=== PATIENT | female | born 1965 | race American Indian/Alaskan Native ===

== ENCOUNTER 2016-08-20 19:37 | Emergency (ER) | payer SELFPAY ==
[2016-08-20 19:59] VITALS: BP 128/71
[2016-08-20] MEDS ORDERED: Sodium Chloride 0.9% 1,000 ML IV ONE ×2 (20:28→21:41)
[2016-08-20] MEDS ORDERED: Sodium Chloride 0.9% 10 ML Syringe FLUSH PRN (20:28)
[2016-08-20] MEDS ORDERED: Pantoprazole 40 MG Vial IVPUSH ONE (20:29)
[2016-08-20] MEDS ORDERED: Ondansetron 4 MG/2 ML SDV IVPUSH ONE ×2 (20:29→22:26)
--- NOTE | 2016-08-20 20:39 | EDM.PDOC ---
ED HPI GENERAL MEDICAL PROBLEM - General Chief Complaint: Gastrointestinal Problem Stated Complaint: VOMITING Time Seen by Provider: 08/20/16 20:18 Source of Information: Reports: Patient History Limitations: Reports: No Limitations - History of Present Illness INITIAL COMMENTS - FREE TEXT/NARRATIVE: Patient presents to [place] with complaints of diarrhea, vomiting, abdominal pain and dehydration for 9 days. She denies travel outside the country, exposure to communicable illness, exposure to ill-prepared food. She also complains of 17 lb weight loss since onset. She complains of fever with chills intermittently the last 9 days. 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: Musculoskeletal History: Reports: Fracture, Other (See Below) Other Musculoskeletal History: thumb - Past Surgical History Musculoskeletal Surgical History: Reports: None Social & Family History - Family History Family Medical History: Noncontributory - Tobacco Use Smoking Status *Q: Current Status Unknown - Caffeine Use Caffeine Use: Reports: Coffee - Alcohol Use Days Per Week of Alcohol Use: 6 Number of Drinks Per Day: 2 Total Drinks Per Week: 12 - Recreational Drug Use Recreational Drug Use: No ED ROS GENERAL - Review of Systems Review Of Systems: See Below Constitutional: Reports: Fever, Chills, Malaise, Fatigue, Decreased Appetite, Weight Loss. Denies: Night Sweats, Diaphoresis HEENT: Reports: No Symptoms Respiratory: Denies: Shortness of Breath, Wheezing, Cough, Sputum Cardiovascular: Denies: Chest Pain, Blood Pressure Problem, Dyspnea on Exertion , Edema, Lightheadedness, Orthopnea, Palpitations, PND, Syncope Endocrine: Denies: Polydypsia, Polyuria GI/Abdominal: Reports: Abdominal Pain, Diarrhea, Decreased Appetite, Nausea, Vomiting. Denies: Black Stool, Bloody Stool, Constipation, Difficulty Swallowing, Distension, Hematemesis, Hematochezia : Denies: Discharge, Dysuria, Flank Pain, Frequency, Hematuria, Urgency Musculoskeletal: Reports: Muscle Pain, Other (generalized body aches) Skin: Reports: Dryness. Denies: Cyanosis, Mottled, Pallor, Diaphoresis, Bruising, Pruritis, Rash, Erythema, Wound Neurological: Reports: Headache. Denies: Confusion, Dizziness, Numbness, Syncope, Tingling, Difficulty Walking, Weakness Psychiatric: Reports: No Symptoms Hematologic/Lymphatic: Reports: No Symptoms Immunologic: Reports: No Symptoms ED EXAM, GI/ABD - Physical Exam Exam: See Below Exam Limited By: No Limitations General Appearance: Alert, WD/WN, No Apparent Distress Eyes: Bilateral: Normal Appearance Ears: Normal External Exam, Normal Canal, Hearing Grossly Normal, Normal TMs Nose: Normal Inspection, Normal Mucosa, No Blood Throat/Mouth: Normal Lips, Normal Teeth, Normal Gums, Normal Oropharynx, Normal Voice, No Airway Compromise, Other (slight dryness noted to mucus membranes. ) Head: Atraumatic, Normocephalic Neck: Normal Inspection, Supple, Non-Tender, Full Range of Motion Respiratory/Chest: No Respiratory Distress, Lungs Clear, Normal Breath Sounds, No Accessory Muscle Use, Chest Non-Tender Cardiovascular: Normal Peripheral Pulses, Regular Rate, Rhythm, No Edema, No Gallop, No Murmur, No Rub GI/Abdominal: Soft, No Distention, Hyperactive Bowel Sounds, Tenderness, Other ( pain with palpation to epigastric area. ). No: Distention, Guarding, Rebound, Rigidity, McBurney's Sign, Mcguire's Sign Extremities: Normal Inspection, Normal Range of Motion, Non-Tender, No Pedal Edema, Normal Capillary Refill Neurological: Alert, Oriented, CN II-XII Intact, Normal Cognition, Normal Gait, No Motor/Sensory Deficits Psychiatric: Normal Affect, Normal Mood Skin Exam: Warm, Dry, Intact, Normal Color, No Rash Lymphatic: No Adenopathy Course - Vital Signs Last Recorded V/S: Last Vital Signs Temp 36.8 C 08/20/16 20:07 Pulse 94 08/20/16 20:07 Resp 16 08/20/16 20:07 BP 128/71 08/20/16 20:07 Pulse Ox 100 08/20/16 20:07 - Orders/Labs/Meds Orders: Active Orders 24 hr Category Date Time Status EKG Documentation Completion [RC] ASDIRECTED Care 08/20/16 22:10 Active CULTURE BLOOD [BC] Urgent Lab 08/20/16 20:40 Received CULTURE BLOOD [BC] Urgent Lab 08/20/16 20:40 Received Potassium Chloride [KCL 20 MEQ in Water 100 ML] 20 meq Med 08/20/16 21:30 Active Premix Bag 1 bag IV ONETIME Sodium Chloride 0.9% [Normal Saline] 1,000 ml Med 08/20/16 21:41 Active IV .BOLUS Sodium Chloride 0.9% [Saline Flush] Med 08/20/16 20:28 Active 10 ml FLUSH ASDIRECTED PRN Blood Culture x2 Reflex Set [OM.PC] Urgent Oth 08/20/16 21:29 Ordered Saline Lock Insert [OM.PC] Routine Oth 08/20/16 20:28 Ordered EKG 12 Lead [EK] Routine Ther 08/20/16 22:09 Ordered Medication Orders Potassium Chloride 20 meq/ (Premix) 100 mls @ 50 mls/hr IV ONETIME ONE Stop: 08/20/16 23:29 Last Admin: 08/20/16 21:42 Dose: 50 mls/hr Sodium Chloride (Normal Saline) 1,000 mls @ 1,000 mls/hr IV .BOLUS ONE Stop: 08/20/16 22:40 Last Infusion: 08/20/16 22:11 Dose: 150 mls/hr Admin: 08/20/16 21:59 Dose: 500 mls/hr Sodium Chloride (Saline Flush) 10 ml FLUSH ASDIRECTED PRN PRN Reason: Keep Vein Open Last Admin: 08/20/16 21:03 Dose: 10 ml Labs: Laboratory Tests 08/20/16 08/20/16 08/20/16 Range/Units 20:40 20:40 20:40 WBC 16.5 H (4.5-11.0) K/uL RBC 4.51 (3.30-5.50) M/uL Hgb 13.1 (12.0-15.0) g/dL Hct 38.4 (36.0-48.0) % MCV 85 (80-98) fL MCH 29 (27-31) pg MCHC 34 (32-36) % Plt Count 540 H (150-400) K/uL Neut % (Auto) 85 H (36-66) % Lymph % (Auto) 8 L (24-44) % [place] % (Auto) 7 H (2-6) % Eos % (Auto) 0 L (2-4) % Baso % (Auto) 1 (0-1) % Sodium 135 L (140-148) mmol/L Potassium 3.1 L (3.6-5.2) mmol/L Chloride 95 L (100-108) mmol/L Carbon Dioxide 26 (21-32) mmol/L Anion Gap 17.1 H (5.0-14.0) mmol/L BUN 60 H (7-18) mg/dL Creatinine 3.6 H* (0.6-1.0) mg/dL Est Cr Clr Drug Dosing 18.73 mL/min Estimated GFR (MDRD) 13 L (>60) Glucose 136 H (74-106) mg/dL Lactic Acid (0.4-2.0) mmol/L Calcium 9.2 (8.5-10.1) mg/dL Magnesium (1.8-2.4) mg/dL Total Bilirubin 0.7 (0.2-1.0) mg/dL AST 11 L (15-37) U/L ALT 12 (12-78) U/L Alkaline Phosphatase 94 (46-116) U/L Total Protein 7.9 (6.4-8.2) g/dL Albumin 2.3 L (3.4-5.0) g/dL Globulin 5.6 H (2.3-3.5) g/dL Albumin/Globulin Ratio 0.4 L (1.2-2.2) Amylase (25-115) U/L Lipase (73-393) U/L Urine Color [place] Urine Appearance Turbid Urine pH 5.0 (4.5-8.0) Ur Specific [place] 1.030 (1.008-1.030) Urine Protein 30 H (NEGATIVE) mg/dL Urine Glucose (UA) Normal (NEGATIVE) mg/dL Urine Ketones Negative (NEGATIVE) mg/dL Urine Occult Blood Large (NEGATIVE) Urine Nitrite Negative (NEGATIVE) Urine Bilirubin Moderate (NEGATIVE) Urine Urobilinogen 1 (NORMAL) mg/dL Ur Leukocyte Esterase Negative (NEGATIVE) Urine RBC 5-10 H (0-5) Urine WBC 5-10 H (0-5) Ur Epithelial Cells Many Amorphous Sediment Numerous Urine Bacteria Few Urine Mucus Few Urine Other See note Urine Opiates Screen (NEGATIVE) Ur Oxycodone Screen (NEGATIVE) Urine Methadone Screen (NEGATIVE) Ur Propoxyphene Screen (NEGATIVE) Ur Barbiturates Screen (NEGATIVE) Ur Tricyclics Screen (NEGATIVE) Ur Phencyclidine Scrn (NEGATIVE) Ur Amphetamine Screen (NEGATIVE) U Methamphetamines Scrn (NEGATIVE) Urine MDMA Screen (NEGATIVE) U Benzodiazepines Scrn (NEGATIVE) U Cocaine Metab Screen (NEGATIVE) U Marijuana (THC) Screen (NEGATIVE) 08/20/16 08/20/16 08/20/16 Range/Units 21:03 21:28 21:28 WBC (4.5-11.0) K/uL RBC (3.30-5.50) M/uL Hgb (12.0-15.0) g/dL Hct (36.0-48.0) % MCV (80-98) fL MCH (27-31) pg MCHC (32-36) % Plt Count (150-400) K/uL Neut % (Auto) (36-66) % Lymph % (Auto) (24-44) % [place] % (Auto) (2-6) % Eos % (Auto) (2-4) % Baso % (Auto) (0-1) % Sodium (140-148) mmol/L Potassium (3.6-5.2) mmol/L Chloride (100-108) mmol/L Carbon Dioxide (21-32) mmol/L Anion Gap (5.0-14.0) mmol/L BUN (7-18) mg/dL Creatinine (0.6-1.0) mg/dL Est Cr Clr Drug Dosing mL/min Estimated GFR (MDRD) (>60) Glucose (74-106) mg/dL Lactic Acid 2.0 (0.4-2.0) mmol/L Calcium (8.5-10.1) mg/dL Magnesium (1.8-2.4) mg/dL Total Bilirubin (0.2-1.0) mg/dL AST (15-37) U/L ALT (12-78) U/L Alkaline Phosphatase (46-116) U/L Total Protein (6.4-8.2) g/dL Albumin (3.4-5.0) g/dL Globulin (2.3-3.5) g/dL Albumin/Globulin Ratio (1.2-2.2) Amylase 22 L (25-115) U/L Lipase 64 L (73-393) U/L Urine Color Urine Appearance Urine pH (4.5-8.0) Ur Specific [place] (1.008-1.030) Urine Protein (NEGATIVE) mg/dL Urine Glucose (UA) (NEGATIVE) mg/dL Urine Ketones (NEGATIVE) mg/dL Urine Occult Blood (NEGATIVE) Urine Nitrite (NEGATIVE) Urine Bilirubin (NEGATIVE) Urine Urobilinogen (NORMAL) mg/dL Ur Leukocyte Esterase (NEGATIVE) Urine RBC (0-5) Urine WBC (0-5) Ur Epithelial Cells Amorphous Sediment Urine Bacteria Urine Mucus Urine Other Urine Opiates Screen Negative (NEGATIVE) Ur Oxycodone Screen Negative (NEGATIVE) Urine Methadone Screen Negative (NEGATIVE) Ur Propoxyphene Screen Negative (NEGATIVE) Ur Barbiturates Screen Negative (NEGATIVE) Ur Tricyclics Screen Negative (NEGATIVE) Ur Phencyclidine Scrn Negative (NEGATIVE) Ur Amphetamine Screen Negative (NEGATIVE) U Methamphetamines Scrn Negative (NEGATIVE) Urine MDMA Screen Negative (NEGATIVE) U Benzodiazepines Scrn Negative (NEGATIVE) U Cocaine Metab Screen Negative (NEGATIVE) U Marijuana (THC) Screen Positive H (NEGATIVE) 08/20/16 Range/Units 21:31 WBC (4.5-11.0) K/uL RBC (3.30-5.50) M/uL Hgb (12.0-15.0) g/dL Hct (36.0-48.0) % MCV (80-98) fL MCH (27-31) pg MCHC (32-36) % Plt Count (150-400) K/uL Neut % (Auto) (36-66) % Lymph % (Auto) (24-44) % [place] % (Auto) (2-6) % Eos % (Auto) (2-4) % Baso % (Auto) (0-1) % Sodium (140-148) mmol/L Potassium (3.6-5.2) mmol/L Chloride (100-108) mmol/L Carbon Dioxide (21-32) mmol/L Anion Gap (5.0-14.0) mmol/L BUN (7-18) mg/dL Creatinine (0.6-1.0) mg/dL Est Cr Clr Drug Dosing mL/min Estimated GFR (MDRD) (>60) Glucose (74-106) mg/dL Lactic Acid (0.4-2.0) mmol/L Calcium (8.5-10.1) mg/dL Magnesium 2.4 (1.8-2.4) mg/dL Total Bilirubin (0.2-1.0) mg/dL AST (15-37) U/L ALT (12-78) U/L Alkaline Phosphatase (46-116) U/L Total Protein (6.4-8.2) g/dL Albumin (3.4-5.0) g/dL Globulin (2.3-3.5) g/dL Albumin/Globulin Ratio (1.2-2.2) Amylase (25-115) U/L Lipase (73-393) U/L Urine Color Urine Appearance Urine pH (4.5-8.0) Ur Specific [place] (1.008-1.030) Urine Protein (NEGATIVE) mg/dL Urine Glucose (UA) (NEGATIVE) mg/dL Urine Ketones (NEGATIVE) mg/dL Urine Occult Blood (NEGATIVE) Urine Nitrite (NEGATIVE) Urine Bilirubin (NEGATIVE) Urine Urobilinogen (NORMAL) mg/dL Ur Leukocyte Esterase (NEGATIVE) Urine RBC (0-5) Urine WBC (0-5) Ur Epithelial Cells Amorphous Sediment Urine Bacteria Urine Mucus Urine Other Urine Opiates Screen (NEGATIVE) Ur Oxycodone Screen (NEGATIVE) Urine Methadone Screen (NEGATIVE) Ur Propoxyphene Screen (NEGATIVE) Ur Barbiturates Screen (NEGATIVE) Ur Tricyclics Screen (NEGATIVE) Ur Phencyclidine Scrn (NEGATIVE) Ur Amphetamine Screen (NEGATIVE) U Methamphetamines Scrn (NEGATIVE) Urine MDMA Screen (NEGATIVE) U Benzodiazepines Scrn (NEGATIVE) U Cocaine Metab Screen (NEGATIVE) U Marijuana (THC) Screen (NEGATIVE) Reviewed lab work with patient and her family member. Will add on amylase, lipase, lactic acid, blood cultures. Administer 2nd liter of saline after current fluid bolus and administer potassium rider IV. Patient in agreement with plan of care for acute renal injury. Meds: Medications Generic Name Dose Route Start Last Admin Trade Name Freq PRN Reason Stop Dose Admin Potassium Chloride 20 meq/ 100 mls @ 50 mls/hr 08/20/16 21:30 08/20/16 21:42 Premix IV 08/20/16 23:29 50 mls/hr ONETIME ONE Administration Sodium Chloride 1,000 mls @ 1,000 mls/hr 08/20/16 21:41 08/20/16 22:11 Normal Saline IV 08/20/16 22:40 150 mls/hr .BOLUS ONE Infusion Sodium Chloride 10 ml 08/20/16 20:28 08/20/16 21:03 Saline Flush FLUSH 10 ml ASDIRECTED PRN Administration Keep Vein Open Discontinued Medications Generic Name Dose Route Start Last Admin Trade Name Simone PRN Reason Stop Dose Admin Sodium Chloride 1,000 mls @ 1,000 mls/hr 08/20/16 20:28 08/20/16 20:53 Normal Saline IV 08/20/16 21:27 1,000 mls/hr .BOLUS ONE Administration Lidocaine HCl 2 ml 08/20/16 21:31 08/20/16 21:45 Xylocaine-Mpf 1% INFILT 08/20/16 21:32 2 ml ONETIME ONE Administration Lidocaine HCl Confirm 08/20/16 21:35 08/20/16 21:46 Xylocaine-Mpf 1% Administered 08/20/16 21:36 Not Given Dose 5 ml .ROUTE .STK-MED ONE Ondansetron HCl 4 mg 08/20/16 20:29 08/20/16 20:54 Zofran IVPUSH 08/20/16 20:30 4 mg ONETIME ONE Administration Pantoprazole Sodium 40 mg 08/20/16 20:29 08/20/16 20:57 Protonix Iv IVPUSH 08/20/16 20:30 40 mg ONETIME ONE Administration - Re-Assessments/Exams Free Text/Narrative Re-Assessment/Exam: 08/20/16 21:48 Patient case discussed with Dr. Peterson, patient suffering from acute renal failure. Recommend transfer to larger facility. Patient notified. She is in agreement with plan. Free Text/Narrative Re-Assessment/Exam: 08/20/16 22:25 2200 Patient report given to Dr. García's [place], [place]. All questions answered, he accepts the patient. Departure - Departure Time of Disposition: 22:00 Disposition: Admitted As Inpatient 68 Condition: Serious Clinical Impression: Acute renal failure, Vomiting, Diarrhea - Discharge Information Referrals: PCP,None [Primary Care Provider] - Forms: ED Department Discharge - Problem List Review Problem List Initiated/Reviewed/Updated: Yes - My Orders Last 24 Hours: My Active Orders 08/20/16 20:28 Sodium Chloride 0.9% [Saline Flush] 10 ml FLUSH ASDIRECTED PRN Saline Lock Insert [OM.PC] Routine 08/20/16 21:41 Sodium Chloride 0.9% [Normal Saline] 1,000 ml IV .BOLUS 08/20/16 22:09 EKG 12 Lead [EK] Routine 08/20/16 22:10 EKG Documentation Completion [RC] ASDIRECTED - Assessment/Plan Last 24 Hours: My Active Orders 08/20/16 20:28 Sodium Chloride 0.9% [Saline Flush] 10 ml FLUSH ASDIRECTED PRN Saline Lock Insert [OM.PC] Routine 08/20/16 21:41 Sodium Chloride 0.9% [Normal Saline] 1,000 ml IV .BOLUS 08/20/16 22:09 EKG 12 Lead [EK] Routine 08/20/16 22:10 EKG Documentation Completion [RC] ASDIRECTED Assessment:: Acute renal failure secondary to vomiting, diarrhea and dehydration. Plan: Transfer via [facility] ambulance [facility] for higher level of care. Patient request due to family being in [place].
[2016-08-20] MEDS ORDERED: Potassium Chloride 20 MEQ in Premix Bag 1 BAG IV ONE (21:30)
[2016-08-20] MEDS: Lidocaine 1% PF 2 ML SDV INFILT ONE (21:45)
== END 2016-08-21 00:15 ==
LOC: JP.ED 19:37
DX: N17.9 Acute kidney failure, unspecified (principal); R11.10 Vomiting, unspecified; R19.7 Diarrhea, unspecified
CPT/HCPCS: 36415; 80053; 80305; 81001; 82150; 83605; 83690; 83735; 85025; 87040; 93005; 96361; 96374; 96375; 99285; C9113; J2405; J3480; J7040; J7050; 93010